=== PATIENT | male | born 1945 | race Two or more races ===

== ENCOUNTER → 2017-03-10 | Outpatient (CLI) | payer MEDICARE | LOC: RAD 16:29 | PROVIDERS: ATTEND Family Medicine | DX: M79.89 Other specified soft tissue disorders (principal); M79.604 Pain in right leg ==

== ENCOUNTER → 2017-04-07 | Outpatient (CLI) | payer MEDICARE | LOC: RAD 18:07 | PROVIDERS: ATTEND Family Medicine | DX: M79.89 Other specified soft tissue disorders (principal) ==

== ENCOUNTER → 2017-06-05 | Outpatient (CLI) | payer MEDICARE ==
[~2017-06-05] MED LIST: LIDOCAINE 1%, 20ML ONE
== END | disposition home or self-care (01) ==
LOC: MERGE 13:30 → RAD 13:37
PROVIDERS: ATTEND Surgery
DX: C49.9 Malignant neoplasm of connective and soft tissue, unspecified (principal)
CPT/HCPCS: 20206; 76942; 88305; J3490; 88342; G0461

== ENCOUNTER → 2017-06-15 | Outpatient (CLI) | payer MEDICARE | END | disposition home or self-care (01) | LOC: PETCFH 08:56 | PROVIDERS: ATTEND Surgery | DX: C49.9 Malignant neoplasm of connective and soft tissue, unspecified (principal) | CPT/HCPCS: 78815; A9552 ==

== ENCOUNTER 2017-07-06 11:24 | Inpatient (IN) | payer MEDICARE ==
[2017-07-04 11:41] LABS: BASOPHILS # (AUTO) 0.06 x10^3/uL (0-0.1); BASOPHILS % (AUTO) 1 % (0-1); EOSINOPHILS # (AUTO) 0.18 x10^3/uL (0-0.4); EOSINOPHILS % (AUTO) 3 % (1-7); LYMPHOCYTES # (AUTO) 2.27 x10^3/uL (1-3.4); LYMPHOCYTES % (AUTO) 33 % (22-44); MD NO; MEAN CORPUSCULAR HEMOGLOBIN 30.4 pg (27.5-34.5); MEAN CORPUSCULAR HGB CONC 33.6 g/dL (33.2-36.2); MEAN CORPUSCULAR VOLUME 90.5 fL (81-97); MEAN PLATELET VOLUME 7.9 fL (7.4-10.4); MONOCYTES % (AUTO) 9 % (2-9); NEUTROPHILS % (AUTO) 54 % (42-75); PLATELET COUNT 303 x10^3/uL (130-400); RED BLOOD COUNT 4.81 x10^6/uL (4.38-5.82); RED CELL DISTRIBUTION WIDTH 14.1 % (9.4-14.8)
[2017-07-04 11:52] LABS: CHLORIDE 107 mmol/L (98-107)
[2017-07-04 11:56] LABS: INTERNATIONAL NORMALIZED RATIO 0.95 (0.93-1.1); PROTHROMBIN TIME 9.9 Seconds (9.6-11.5)
[2017-07-04 12:19] LABS: ALANINE AMINOTRANSFERASE 24 U/L (12-78); ALBUMIN 3.8 g/dL (3.4-5.0); ALKALINE PHOSPHATASE 83 U/L (45-117); ANION GAP 7 mmol/L (5-15); BILIRUBIN,TOTAL 0.9 mg/dL (0.2-1.0); CALCIUM 9.1 mg/dL (8.5-10.1); CREATININE 0.94 mg/dL (0.7-1.3); TOTAL PROTEIN 7.7 g/dL (6.4-8.2)
[~2017-07-06] VITALS: Ht 177.8 cm; Wt 82.2 kg
[~2017-07-06 11:24] MED LIST changes: +DUTA0.5C PO; +IPRA15SP NS; -LIDOCAINE 1%, 20ML ONE; +PANT20TA3 PO; +TAMS-11 PO
[2017-07-06 11:53] VITALS: BP 143/81
[2017-07-06] MEDS ORDERED: LACTATED RINGERS 1,000 ML IV SCH (11:58)
[2017-07-06] MEDS ORDERED: LIDOCAINE-MPF 2% ,5ML ONE (13:15)
[2017-07-06] MEDS ORDERED: PROPOFOL 10 MG/ML, 20ML ONE (13:15)
[2017-07-06] MEDS ORDERED: CEFAZOLIN 1,000 MG ONE ×2 (13:30)
[2017-07-06] MEDS ORDERED: BUPIVACAINE/PF 0.25% ONE (13:33)
[2017-07-06] MEDS ORDERED: MORPHINE SULFATE 4 MG/ML, 1ML ONE (13:42)
[2017-07-06] MEDS ORDERED: DEXAMETHASONE 4 MG/ML, 1ML ONE ×2 (13:48)
[2017-07-06] MEDS ORDERED: FENTANYL PF 100 MCG/2ML ONE ×2 (14:37→14:47)
[2017-07-06] MEDS ORDERED: OXYcodone 5 MG/5 ML ORAL.SOL UDC ONE (14:47)
[2017-07-06] MEDS ORDERED: ACETAMINOPHEN 650 MG/20.3 ML UDC ONE (14:47)
[2017-07-06] MEDS: FENTANYL PF 100 MCG/2ML IV PRN ×2 (14:53→15:01)
[2017-07-06] MEDS ORDERED: OXYcodone 5 MG/5 ML ORAL.SOL UDC PO PRN (15:00)
[2017-07-06] MEDS ORDERED: MEPERIDINE/PF 25MG/0.5ML IVPush PRN (15:00)
[2017-07-06] MEDS ORDERED: HYDROcodone/APAP 7.5-325MG/15ML UDC PO PRN (15:00)
[2017-07-06] MEDS ORDERED: ONDANSETRON 2MG/ML, 2ML IVPush PRN (15:00)
[2017-07-06] MEDS ORDERED: ACETAMINOPHEN 325 MG TABLET PO PRN ×2 (15:00→17:00)
[2017-07-06] MEDS ORDERED: morphine SULFATE 10 MG/ML, 1ML ONE (15:05)
[2017-07-06] MEDS: morphine SULFATE 10 MG/ML, 1ML IV PRN ×2 (15:07→15:21)
[2017-07-06] MEDS ORDERED: MEPERIDINE/PF 25MG/0.5ML ONE (15:30)
[2017-07-06] MEDS ORDERED: MORPHINE SULFATE 4 MG/ML, 1ML IVPush PRN (16:30)
[2017-07-06] MEDS ORDERED: hydrALAzine 20 MG/ML, 1ML IV PRN (17:00)
[2017-07-06] MEDS ORDERED: ACETAMINOPHEN 650 MG SUPP PR PRN (17:00)
[2017-07-06] MEDS ORDERED: ONDANSETRON 2MG/ML, 2ML IV PRN (17:00)
[2017-07-06] MEDS ORDERED: DIPHENHYDRAMINE 50 MG/ML, 1ML IV PRN (17:00)
[2017-07-06] MEDS ORDERED: SODIUM CHLORIDE 0.9%, 500ML IV PRN (17:00)
[2017-07-06] MEDS ORDERED: ENALAPRILAT 1.25 MG/ML, 2ML IV PRN (17:00)
[2017-07-06] MEDS ORDERED: DIPHENHYDRAMINE 25 MG CAPSULE PO PRN (17:00)
[2017-07-06] MEDS: POTASSIUM CHLORIDE 20 MEQ in LACTATED RINGERS 1,000 ML IV SCH (18:22)
[2017-07-06 18:49] VITALS: BP 124/74
[2017-07-06] MEDS: OXYcodone/APAP 5/325MG TABLET PO PRN ×2 (19:27→23:46)
[2017-07-06] MEDS ORDERED: SODIUM CHLORIDE FLUSH 3ML SYRINGE IVF SCH (21:00)
[2017-07-06] MEDS: CEFAZOLIN PMX 1GM/50ML 50 ML IVPB SCH (21:03)
[2017-07-06 23:39] VITALS: BP 131/73
[2017-07-07] MEDS: OXYcodone/APAP 5/325MG TABLET PO PRN ×6 (00:59→23:02)
[2017-07-07] MEDS: ONDANSETRON ODT 4 MG PO PRN ×3 (01:03→23:52)
[2017-07-07] MEDS: POTASSIUM CHLORIDE 20 MEQ in LACTATED RINGERS 1,000 ML IV SCH (03:36)
[2017-07-07 04:36] VITALS: BP 109/60
[2017-07-07] MEDS: CEFAZOLIN PMX 1GM/50ML 50 ML IVPB SCH (05:07)
[2017-07-07 05:28] LABS: BASOPHILS # (AUTO) 0.03 x10^3/uL (0-0.1); BASOPHILS % (AUTO) 0 % (0-1); EOSINOPHILS % (AUTO) 0 % (1-7); LYMPHOCYTES # (AUTO) 1.12 x10^3/uL (1-3.4); LYMPHOCYTES % (AUTO) 11 % (22-44); MD NO; MEAN CORPUSCULAR HEMOGLOBIN 30.4 pg (27.5-34.5); MEAN CORPUSCULAR HGB CONC 33.4 g/dL (33.2-36.2); MEAN CORPUSCULAR VOLUME 91.2 fL (81-97); MEAN PLATELET VOLUME 8.6 fL (7.4-10.4); MONOCYTES % (AUTO) 6 % (2-9); NEUTROPHILS # (AUTO) 8.91 x10^3/uL (1.8-6.8); NEUTROPHILS % (AUTO) 84 % (42-75); PLATELET COUNT 265 x10^3/uL (130-400); RED BLOOD COUNT 4.22 x10^6/uL (4.38-5.82); RED CELL DISTRIBUTION WIDTH 13.9 % (9.4-14.8)
[2017-07-07 06:37] LABS: ALANINE AMINOTRANSFERASE 21 U/L (12-78); ALBUMIN 3.1 g/dL (3.4-5.0); ANION GAP 9 mmol/L (5-15); CALCIUM 8.3 mg/dL (8.5-10.1); CHLORIDE 105 mmol/L (98-107)
[2017-07-07 06:39] LABS: ALKALINE PHOSPHATASE 64 U/L (45-117); BILIRUBIN,TOTAL 0.4 mg/dL (0.2-1.0); CREATININE 0.97 mg/dL (0.7-1.3); TOTAL PROTEIN 6.7 g/dL (6.4-8.2)
[2017-07-07 06:51] VITALS: BP 121/66
[2017-07-07 13:23] VITALS: BP 118/64
[2017-07-07] MEDS: KETOROLAC 10MG TABLET PO SCH ×2 (13:43→20:00)
[2017-07-07] MEDS ORDERED: MORPHINE SULFATE 4 MG/ML, 1ML IV PRN (14:00)
[2017-07-07 19:18] VITALS: BP 112/67
[2017-07-07] MEDS: SODIUM CHLORIDE FLUSH 10ML SYR IVF SCH (20:00)
[2017-07-08] MEDS: KETOROLAC 10MG TABLET PO SCH ×2 (01:30→07:25)
[2017-07-08 03:22] VITALS: BP 91/54
[2017-07-08] MEDS: OXYcodone/APAP 5/325MG TABLET PO PRN (03:23)
[2017-07-08] MEDS: ONDANSETRON ODT 4 MG PO PRN (06:14)
[2017-07-08] MEDS: OXYcodone/APAP 7.5/325MG TABLET PO PRN ×2 (07:21→11:19)
[2017-07-08 08:19] VITALS: BP 119/70
[2017-07-08] MEDS: SODIUM CHLORIDE FLUSH 10ML SYR IVF SCH (09:23)
[2017-07-08] MEDS ORDERED: OXYC-302 PO (09:38)
[2017-07-08] MEDS ORDERED: ONDA4TAB7 PO (09:38)
[2017-07-08] MEDS ORDERED: POLY17PO5 PO (09:38)
== END 2017-07-08 11:25 | disposition home or self-care (01) | DRG 502 ==
LOC: ORIP 11:24 → 4NOR 16:17
PROVIDERS: ADMIT Surgery; ATTEND Surgery
PROC: 0KBQ0ZZ Excision of Right Upper Leg Muscle, Open Approach (ICD-10-PCS; principal; 2017-07-06 13:30)
DX: C49.21 Malignant neoplasm of connective and soft tissue of right lower limb, including hip (principal); R06.03 Acute respiratory distress; Z90.89 Acquired absence of other organs
CPT/HCPCS: 36415; 80053; 85025; 85610; 88305; 88307; 93005; J0690; J1100; J2175; J2405; J2704; J3010; J3480; J3490; Q0162; J2270; J7120

== ENCOUNTER → 2017-10-26 | Outpatient (CLI) | payer MEDICARE ==
[~2017-10-26] MED LIST changes: +GADOBUTROL 10 MMOL/10 ML VIAL ONE; +ONDA4TAB7 PO; +OXYC-302 PO; +POLY17PO5 PO
[2017-10-26 15:15] LABS: CREATININE 0.98 mg/dL (0.7-1.3)
== END | disposition home or self-care (01) ==
LOC: RAD 14:39
PROVIDERS: ATTEND Surgery
DX: C76.51 Malignant neoplasm of right lower limb (principal)
CPT/HCPCS: 36415; 73720; 82565; A9585

== ENCOUNTER → 2018-06-11 | Outpatient (CLI) | payer MEDICARE ==
[~2018-06-11] MED LIST changes: -GADOBUTROL 10 MMOL/10 ML VIAL ONE
== END | disposition home or self-care (01) ==
LOC: CFH 15:16
PROVIDERS: ATTEND Surgery
DX: Z08 Encounter for follow-up examination after completed treatment for malignant neoplasm (principal); C40.21 Malignant neoplasm of long bones of right lower limb

== ENCOUNTER → 2018-10-04 | Outpatient (CLI) | payer MEDICARE | END | disposition home or self-care (01) | LOC: CVU 15:29 | PROVIDERS: ATTEND Internal Medicine Cardiovascular Disease | DX: I37.1 Nonrheumatic pulmonary valve insufficiency (principal) | CPT/HCPCS: 93306 ==

== ENCOUNTER → 2018-10-09 | Outpatient (CLI) | payer MEDICARE ==
[~2018-10-09] MED LIST changes: +REGADENOSON 0.4 MG/5 ML SYRINGE ONE
== END | disposition home or self-care (01) ==
LOC: CFH 08:07
PROVIDERS: ATTEND Internal Medicine Cardiovascular Disease
DX: R07.89 Other chest pain (principal)
CPT/HCPCS: 78452; 93017; A9502; J2785

== ENCOUNTER 2020-10-01 18:53 | Observation (INO) | payer MEDICARE ==
[~2020-10-01] VITALS: Ht 177.8 cm; Wt 59.0 kg
[~2020-10-01 18:53] MED LIST changes: -OXYC-302 PO; +OXYC1TAB12 PO; -PANT20TA3 PO; +PANT20TA4 PO; -REGADENOSON 0.4 MG/5 ML SYRINGE ONE
--- NOTE | 2020-10-01 19:12 | NUR ---
Patient presents to ER with son. Son states patient reported to him that he experienced a GLF approx 1 hr ago and wasn't able to get up on his own. When his son got to him, patient was unable to get his words out. EMS responded but according to son, "they were asking a lot of questions so I just took him here myself." Patient was last seen normal at approx 1400. Patient has a hx of HTN. Son states he had an episode of similar symptoms once in the past but he doesn't know what he was dx with. Patient unable to smile for this RN. No upper ext drift noted. 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
--- NOTE | 2020-10-01 19:13 | NUR ---
PER SON PT LAST NORMAL [id number]
--- NOTE | 2020-10-01 19:21 | NUR ---
CODE NEURO CALLED [id number]
[2020-10-01 19:25] LABS: BASOPHILS % (AUTO) 1 % (0-1); EOSINOPHILS % (AUTO) 2 % (1-7); LYMPHOCYTES % (AUTO) 32 % (22-44); MEAN CORPUSCULAR HEMOGLOBIN 30.2 pg (27.5-34.5); MEAN CORPUSCULAR HGB CONC 33.8 g/dL (33.2-36.2); MEAN PLATELET VOLUME 7.9 fL (7.4-10.4); MONOCYTES % (AUTO) 7 % (2-9); NEUTROPHILS % (AUTO) 57 % (42-75); PLATELET COUNT 276 x10^3/uL (130-400); RED BLOOD COUNT 4.99 x10^6/uL (4.38-5.82); RED CELL DISTRIBUTION WIDTH 14.2 % (9.4-14.8)
--- NOTE | 2020-10-01 19:25 | NUR ---
IN CT PT ABLE TO MOVE SELF BETWEEN [facility] AND CT TABLE.
--- NOTE | 2020-10-01 19:29 | NUR ---
PT BACK FROM CT AT THIS TIME
[2020-10-01] MEDS ORDERED: NALOXONE 0.4 MG/ML, 1ML IVPush ONE (19:30)
--- NOTE | 2020-10-01 19:30 | NUR ---
PT A/O4 REQUESTING URINAL AND INTERACTING WITH FAMILY AND STAFF APPROPRIATELY
[2020-10-01 19:36] LABS: ALANINE AMINOTRANSFERASE 31 U/L (12-78); ANION GAP 7 mmol/L (5-15); CHLORIDE 105 mmol/L (98-107); CREATININE 0.98 mg/dL (0.7-1.3)
[2020-10-01] MEDS ORDERED: OMNIPAQUE 350 MG/ML, 100ML BOTTLE ONE (19:36)
[2020-10-01] MEDS ORDERED: NALOXONE 0.4 MG/ML, 1ML ONE (19:38)
--- NOTE | 2020-10-01 19:39 | NUR ---
DISCUSSION WITH DR CHURCHILL ABOUT NARCAN ADMIN
[2020-10-01 19:40] LABS: ALKALINE PHOSPHATASE 95 U/L (45-117); BILIRUBIN,TOTAL 0.6 mg/dL (0.2-1.0); TOTAL PROTEIN 8.4 g/dL (6.4-8.2); TROPONIN I < 0.015 ng/mL (0.000-0.045)
--- NOTE | 2020-10-01 19:46 | NUR ---
NO CHANGE IN PT STATUS POST NARCAN
[2020-10-01 19:50] LABS: INTERNATIONAL NORMALIZED RATIO 1.04 (0.93-1.1); PROTHROMBIN TIME 11.1 Seconds (9.6-11.5)
--- NOTE | 2020-10-01 19:53 | NUR ---
PT RESTING ON ALONSO CONVERSING WITH FAMILY AT THIS TIME
--- NOTE | 2020-10-01 19:57 | NUR ---
DR CHURCHILL TO BEDSIDE FOR EVAL
[2020-10-01] MEDS ORDERED: CEFTRIAXONE 1,000 MG in DEXTROSE 5% 50 ML IVPB ONE (20:00)
[2020-10-01] MEDS ORDERED: AZITHROMYCIN 500 MG in SODIUM CHLORIDE 0.9% 250 ML IV ONE (20:00)
[2020-10-01 20:14] LABS: MICROSCOPIC NOT IND
--- NOTE | 2020-10-01 20:25 | NUR ---
LAB CALLED TO FOLLOW UP ON SECOND SET OF CULTURES TO BE DRAWN
[2020-10-01 20:27] LABS: AMPHETAMINE SCREEN, URINE Negative (Negative); BARBITURATE SCREEN, URINE Negative (Negative); BENZODIAZEPINE SCREEN, URINE Negative (Negative); CANNABINOID SCREEN, URINE Negative (Negative); COCAINE SCREEN, URINE Negative (Negative); METHADONE SCREEN, URINE Negative (Negative); OPIATE SCREEN, URINE Negative (Negative)
--- NOTE | 2020-10-01 20:49 | NUR ---
ABX STARTED, CUTURES DRAWN X2 PRIOR TO START
--- NOTE | 2020-10-01 21:29 | NUR ---
ERP TO BEDSIDE FOR RCK AND POC
[2020-10-01] MEDS ORDERED: ACETAMINOPHEN 325 MG TABLET PO PRN (22:00)
[2020-10-01] MEDS ORDERED: morphine SULFATE 10 MG/ML, 1ML IVPush PRN (22:00)
[2020-10-01] MEDS ORDERED: TEMAZEPAM 15 MG CAPSULE PO PRN (22:00)
[2020-10-01] MEDS ORDERED: SODIUM CHLORIDE 0.9% 1,000 ML IV SCH (22:00)
[2020-10-01] MEDS ORDERED: GUAIFENESIN/DM 200-20MG, 10ML UDC PO PRN (22:00)
[2020-10-01] MEDS ORDERED: ENALAPRILAT 1.25 MG/ML, 2ML IVPush PRN (22:00)
[2020-10-01] MEDS ORDERED: DOCUSATE 100 MG CAPSULE PO PRN (22:00)
[2020-10-01] MEDS ORDERED: ONDANSETRON 2MG/ML, 2ML IVPush PRN (22:00)
[2020-10-01] MEDS ORDERED: HYDROcodone/APAP 5/325 TABLET PO PRN (22:00)
[2020-10-01] MEDS ORDERED: BACLOFEN 10 MG TABLET PO PRN (22:00)
--- NOTE | 2020-10-01 22:02 | NUR ---
REPORT TO HADLEY PEDRO PT READY FOR TRANSFER TO FLOOR AT THIS TIME, ALL QUESTIONS ADDRESSED.
[2020-10-01 22:16] VITALS: BP 137/82
[2020-10-01] MEDS ORDERED: ENOXAPARIN 40 MG/0.4 ML ONE ×2 (22:28→22:30)
[2020-10-01] MEDS: ENOXAPARIN 40 MG/0.4 ML SQ SCH (22:53)
[2020-10-02] LABS: TROPONIN I < 0.015 ng/mL (0.000-0.045)
[2020-10-02 00:21] VITALS: BP 126/76
[2020-10-02 02:01] VITALS: BP 129/68
[2020-10-02 05:10] LABS: BASOPHILS % (AUTO) 1 % (0-1); EOSINOPHILS % (AUTO) 4 % (1-7); LYMPHOCYTES % (AUTO) 40 % (22-44); MEAN CORPUSCULAR HEMOGLOBIN 30.4 pg (27.5-34.5); MEAN CORPUSCULAR HGB CONC 33.8 g/dL (33.2-36.2); MEAN PLATELET VOLUME 7.9 fL (7.4-10.4); MONOCYTES % (AUTO) 8 % (2-9); NEUTROPHILS % (AUTO) 48 % (42-75); PLATELET COUNT 250 x10^3/uL (130-400); RED BLOOD COUNT 4.58 x10^6/uL (4.38-5.82); RED CELL DISTRIBUTION WIDTH 14.3 % (9.4-14.8)
[2020-10-02 05:24] LABS: ANION GAP 5 mmol/L (5-15); CALCIUM 8.4 mg/dL (8.5-10.1); CHLORIDE 107 mmol/L (98-107)
[2020-10-02 05:31] LABS: CREATININE 0.82 mg/dL (0.7-1.3); TROPONIN I < 0.015 ng/mL (0.000-0.045)
[2020-10-02 08:11] VITALS: BP 137/83
[2020-10-02] MEDS ORDERED: TAMSULOSIN 0.4 MG CAP.ER.24H PO SCH (09:00)
[2020-10-02] MEDS ORDERED: DUTASTERIDE 0.5 MG CAPSULE PO SCH (09:00)
[2020-10-02] MEDS ORDERED: TERA2CAP3 PO (13:22)
[2020-10-02 15:14] VITALS: BP 116/67
[2020-10-02] MEDS ORDERED: AZITHROMYCIN 500 MG in SODIUM CHLORIDE 0.9% 250 ML IV SCH (20:00)
[2020-10-02] MEDS ORDERED: CEFTRIAXONE 2 GM in DEXTROSE 5% 50 ML IVPB SCH (21:00)
[2020-10-02 22:00] VITALS: BP_SYST 139; BP_SYST 147; BP_SYST 166; BP_DIAS 88; BP_DIAS 96
[2020-10-02] MEDS: ENOXAPARIN 40 MG/0.4 ML SQ SCH (22:00)
== END 2020-10-03 02:53 | disposition home or self-care (01) ==
LOC: ED 19:10 → EDIP 20:52 → INTOOBSV 20:52 → 4WST 22:24
PROVIDERS: ADMIT Internal Medicine; ATTEND Internal Medicine
DX: R55 Syncope and collapse (principal); R41.82 Altered mental status, unspecified; J15.9 Unspecified bacterial pneumonia; N40.0 Benign prostatic hyperplasia without lower urinary tract symptoms; G89.29 Other chronic pain; M54.9 Dorsalgia, unspecified; C49.21 Malignant neoplasm of connective and soft tissue of right lower limb, including hip; R42 Dizziness and giddiness; R29.6 Repeated falls; I10 Essential (primary) hypertension; Z79.899 Other long term (current) drug therapy
CPT/HCPCS: 36415; 70450; 70496; 70498; 71045; 80047; 80048; 80053; 80307; 81003; 82962; 83605; 83735; 84100; 84484; 85025; 85610; 85730; 87040; 93005; 93306; 96361; 96365; 96366; 96368; 96372; 96375; 97162; 97166; 99291; G0378; J0456; J0696; J1650; J2310; J7030; J7050; Q9967; 96374